=== PATIENT | male | born 1955 | race Hispanic/Latino ===

== ENCOUNTER 2019-05-04 11:55 | Inpatient (IN) | payer MEDICAID | END 2019-05-10 15:30 | disposition home or self-care (01) | LOC: EDH 11:55 → EDHIP 11:56 → 4CH 21:40 | PROC: 0FT44ZZ Resection of Gallbladder, Percutaneous Endoscopic Approach (ICD-10-PCS; principal; 2019-05-06 18:10) | DX: K80.63 Calculus of gallbladder and bile duct with acute cholecystitis with obstruction (principal); K82.A1 Gangrene of gallbladder in cholecystitis; B96.81 Helicobacter pylori [H. pylori] as the cause of diseases classified elsewhere; D64.9 Anemia, unspecified; K27.9 Peptic ulcer, site unspecified, unspecified as acute or chronic, without hemorrhage or perforation; E66.9 Obesity, unspecified; E78.5 Hyperlipidemia, unspecified; K29.70 Gastritis, unspecified, without bleeding; K55.20 Angiodysplasia of colon without hemorrhage; K82.8 Other specified diseases of gallbladder; K80.51 Calculus of bile duct without cholangitis or cholecystitis with obstruction ==

== ENCOUNTER 2019-05-17 12:09 | Emergency (ER) | payer MEDICAID ==
[2019-05-17 13:16] LABS: BASOPHILS % (AUTO) 0.5 % (0.0-5.0); EOSINOPHILS % (AUTO) 1.1 % (0.0-8.0); HEMATOCRIT 38.3 % (42-54); LYMPHOCYTES % (AUTO) 13.1 % (21.0-51.0); MEAN CORPUSCULAR HEMOGLOBIN 28.5 pg (27.0-33.0); MEAN CORPUSCULAR HGB CONC 32.9 g/dL (32.0-36.0); MEAN CORPUSCULAR VOLUME 86.6 fL (79-99); MONOCYTES % (AUTO) 7.7 % (3.0-13.0); NEUTROPHILS % (AUTO) 77.6 % (40.0-77.0); NUCLEATED RED BLOOD CELLS 0.1 % (0.0-0.19); PLATELET COUNT (AUTO) 360 K/uL (130-400); RED BLOOD CELL COUNT(AUTO) 4.42 MIL/uL (4.50-6.20); RED CELL DISTRIBUTION WIDTH 13.8 % (11.0-15.5); WHITE BLOOD COUNT (AUTO) 7.9 K/uL (4.8-10.8)
[2019-05-17 13:20] LABS: APPEARANCE,URINE Clear (CLEAR); BILIRUBIN,URINE Small (NEGATIVE); COLOR,URINE Dark Yellow (YELLOW); GLUCOSE, URINE (UA) Negative (NEGATIVE); KETONES,URINE Negative (NEGATIVE); LEUKOCYTE ESTERASE ,URINE Trace (NEGATIVE); NITRATE,URINE Negative (NEGATIVE); OCCULT BLOOD,URINE Negative (NEGATIVE); PROTEIN,URINE Negative (NEGATIVE)
[2019-05-17 13:24] LABS: CREATININE 1.1 mg/dL (0.5-1.5)
[2019-05-17 13:28] LABS: ALBUMIN 3.2 g/dL (3.5-5.0); BILIRUBIN,TOTAL 0.6 mg/dL (0.2-1.0); TOTAL PROTEIN, SERUM 8.2 g/dL (6.0-8.3)
[2019-05-17 13:51] LABS: BACTERIA,URINE Few /HPF (None Seen); RBC,URINE 0-1 /HPF (0-1); WBC,URINE 0-1 /HPF (0-1)
[2019-05-17 13:52] LABS: MUCUS,URINE Moderate LPF (None Seen); SQUAMOUS EPITHELIAL CELL,UR 0-2 /HPF (0-2)
[2019-05-17] MEDS ORDERED: IOHEXOL-350 75 ML VIAL IV ONE (14:13)
[2019-05-17] MEDS ORDERED: LIDOCAINE HCL 2% VISCOUS 15 ML UDCUP ONE (15:56)
[2019-05-17] MEDS ORDERED: MAG HYDROX/AL HYDROX/SIMETH ES 30 ML SUSP UDCUP ONE (15:56)
== END 2019-05-17 16:13 | disposition home or self-care (01) ==
LOC: EDH 12:09
DX: K29.00 Acute gastritis without bleeding (principal); Z90.49 Acquired absence of other specified parts of digestive tract; Z98.890 Other specified postprocedural states
CPT/HCPCS: 36415; 74177; 80053; 81001; 83690; 85025; 93005; 99285; Q9967

== ENCOUNTER 2020-11-07 15:18 | Emergency (ER) | payer MEDICAID ==
[2020-11-07 17:02] LABS: APPEARANCE,URINE Clear (CLEAR); BASOPHILS % (AUTO) 0.6 % (0.0-5.0); BILIRUBIN,URINE Negative (NEGATIVE); COLOR,URINE Yellow (YELLOW); EOSINOPHILS % (AUTO) 2.2 % (0.0-8.0); GLUCOSE, URINE (UA) Negative (NEGATIVE); HEMATOCRIT 41.9 % (42-54); KETONES,URINE Negative (NEGATIVE); LEUKOCYTE ESTERASE ,URINE Negative (NEGATIVE); LYMPHOCYTES % (AUTO) 23.2 % (21.0-51.0); MEAN CORPUSCULAR HEMOGLOBIN 28.3 pg (27.0-33.0); MEAN CORPUSCULAR HGB CONC 33.2 g/dL (32.0-36.0); MEAN CORPUSCULAR VOLUME 85.3 fL (79-99); MONOCYTES % (AUTO) 8.2 % (3.0-13.0); NEUTROPHILS % (AUTO) 65.6 % (40.0-77.0); NITRATE,URINE Negative (NEGATIVE); OCCULT BLOOD,URINE Negative (NEGATIVE); PH,URINE 5.5 (5.0-8.0); PLATELET COUNT (AUTO) 151 K/uL (130-400); PROTEIN,URINE Negative (NEGATIVE); RED BLOOD CELL COUNT(AUTO) 4.91 MIL/uL (4.50-6.20); RED CELL DISTRIBUTION WIDTH 12.2 % (11.0-15.5); UROBILINOGEN,URINE 0.2 mg/dL (0.2-1.0); WHITE BLOOD COUNT (AUTO) 5.4 K/uL (4.8-10.8)
[2020-11-07 17:11] LABS: CREATININE 1.1 mg/dL (0.5-1.5); POTASSIUM 3.7 mmol/L (3.5-5.1)
[2020-11-07 17:13] LABS: INR 0.98 (0.85-1.15); PROTHROMBIN TIME 10.5 SEC (9.6-11.6)
[2020-11-07 17:14] LABS: PARTIAL THROMBOPLASTIN TIME 25.8 SEC (26.3-35.5)
[2020-11-07 17:16] LABS: ALBUMIN 3.7 g/dL (3.5-5.0); BILIRUBIN,TOTAL 0.4 mg/dL (0.2-1.0)
== END 2020-11-07 18:38 | disposition home or self-care (01) ==
LOC: EDH 15:18
DX: G44.229 Chronic tension-type headache, not intractable (principal); F43.0 Acute stress reaction; R03.0 Elevated blood-pressure reading, without diagnosis of hypertension; E78.00 Pure hypercholesterolemia, unspecified; Z98.890 Other specified postprocedural states
CPT/HCPCS: 36415; 70450; 80053; 81003; 82550; 84484; 85025; 85610; 85730; 93005

== ENCOUNTER 2022-04-12 13:59 | Emergency (ER) | payer MEDICAID ==
[~2022-04-12] VITALS: Ht 172.7 cm; Wt 98.9 kg
[2022-04-12 14:28] LABS: BASOPHILS % (AUTO) 0.4 % (0.0-5.0); EOSINOPHILS % (AUTO) 1.5 % (0.0-8.0); HEMATOCRIT 46.9 % (42-54); LYMPHOCYTES % (AUTO) 22.2 % (21.0-51.0); MEAN CORPUSCULAR HEMOGLOBIN 28.8 pg (27.0-33.0); MEAN CORPUSCULAR HGB CONC 33.5 g/dL (32.0-36.0); MEAN CORPUSCULAR VOLUME 86.1 fL (79-99); MONOCYTES % (AUTO) 6.9 % (3.0-13.0); NEUTROPHILS % (AUTO) 68.6 % (40.0-77.0); PLATELET COUNT (AUTO) 147 K/uL (130-400); RED BLOOD CELL COUNT(AUTO) 5.45 MIL/uL (4.50-6.20); RED CELL DISTRIBUTION WIDTH 11.9 % (11.0-15.5); WHITE BLOOD COUNT (AUTO) 6.7 K/uL (4.8-10.8)
[2022-04-12 14:36] LABS: CREATININE 0.9 mg/dL (0.5-1.5); POTASSIUM 4.2 mmol/L (3.5-5.1)
[2022-04-12 14:40] LABS: ALBUMIN 4.1 g/dL (3.5-5.0)
[2022-04-12 15:37] LABS: APPEARANCE,URINE Clear (CLEAR); BILIRUBIN,URINE Negative (NEGATIVE); COLOR,URINE Yellow (YELLOW); GLUCOSE, URINE (UA) Negative (NEGATIVE); KETONES,URINE Negative (NEGATIVE); LEUKOCYTE ESTERASE ,URINE Negative (NEGATIVE); NITRATE,URINE Negative (NEGATIVE); OCCULT BLOOD,URINE Negative (NEGATIVE); PH,URINE 5.5 (5.0-8.0); PROTEIN,URINE Negative (NEGATIVE); UROBILINOGEN,URINE 0.2 mg/dL (0.2-1.0)
[2022-04-12] MEDS ORDERED: IOHEXOL-350 75 ML VIAL IV ONE (17:24)
[2022-04-12] MEDS ORDERED: FAMO20TA8 PO (19:05)
[2022-04-12 19:07] VITALS: BP 148/89
== END 2022-04-12 19:16 | disposition home or self-care (01) ==
LOC: EDH 13:59
DX: K21.9 Gastro-esophageal reflux disease without esophagitis (principal); K43.9 Ventral hernia without obstruction or gangrene; E78.00 Pure hypercholesterolemia, unspecified; Z90.49 Acquired absence of other specified parts of digestive tract
CPT/HCPCS: 99291; 74177; 84484; 80053; 83690; 85025; 81003; 36415; 93005; Q9967

== ENCOUNTER 2022-06-22 06:57 | Emergency (ER) | payer MEDICAID ==
[~2022-06-22] VITALS: Ht 172.7 cm; Wt 96.6 kg
[~2022-06-22 06:57] MED LIST: FAMO20TA8 PO
[2022-06-22] MEDS ORDERED: 0.9%NACL 1000ML 1,000 ML IV ONE (07:30)
[2022-06-22 07:33] LABS: BASOPHILS % (AUTO) 0.6 % (0.0-5.0); HEMATOCRIT 42.6 % (42-54); LYMPHOCYTES % (AUTO) 30.2 % (21.0-51.0); MEAN CORPUSCULAR HEMOGLOBIN 29.2 pg (27.0-33.0); MEAN CORPUSCULAR HGB CONC 34.7 g/dL (32.0-36.0); MEAN CORPUSCULAR VOLUME 84.2 fL (79-99); MONOCYTES % (AUTO) 8.3 % (3.0-13.0); NEUTROPHILS % (AUTO) 57.7 % (40.0-77.0); PLATELET COUNT (AUTO) 170 K/uL (130-400); RED BLOOD CELL COUNT(AUTO) 5.06 MIL/uL (4.50-6.20); RED CELL DISTRIBUTION WIDTH 12.1 % (11.0-15.5); WHITE BLOOD COUNT (AUTO) 4.7 K/uL (4.8-10.8)
[2022-06-22 07:46] LABS: ALBUMIN 3.8 g/dL (3.5-5.0); POTASSIUM 3.6 mmol/L (3.5-5.1)
[2022-06-22 07:59] LABS: APPEARANCE,URINE CLEAR (CLEAR); BILIRUBIN,URINE NEGATIVE (NEGATIVE); COLOR,URINE YELLOW (YELLOW); GLUCOSE, URINE (UA) NEGATIVE (NEGATIVE); KETONES,URINE NEGATIVE (NEGATIVE); LEUKOCYTE ESTERASE ,URINE NEGATIVE (NEGATIVE); NITRATE,URINE NEGATIVE (NEGATIVE); OCCULT BLOOD,URINE NEGATIVE (NEGATIVE); PROTEIN,URINE NEGATIVE (NEGATIVE); UROBILINOGEN,URINE 0.2 mg/dL (0.2-1.0)
[2022-06-22 08:03] LABS: RBC,URINE None Seen /HPF (0-1); WBC,URINE None Seen /HPF (0-1)
[2022-06-22 08:10] LABS: BACTERIA,URINE Rare /HPF (None Seen); SQUAMOUS EPITHELIAL CELL,UR 0-2 /HPF (0-2)
[2022-06-22 09:45] VITALS: BP 141/72
== END 2022-06-22 09:44 | disposition home or self-care (01) ==
LOC: EDH 06:57
DX: G44.209 Tension-type headache, unspecified, not intractable (principal); E86.0 Dehydration; Z90.49 Acquired absence of other specified parts of digestive tract
CPT/HCPCS: 99285; 96360; 70450; 96361; 82550; 84484; 80053; 85025; 81001; 36415; 93005; J7030

== ENCOUNTER → 2023-04-11 | Outpatient (CLI) | payer OTHER ==
[~2023-04-11] MED LIST changes: +IOHEXOL 350 MG/ML 100ML INFUS..BTL IV ONE
== END | disposition home or self-care (01) ==
LOC: RAH 09:33
PROVIDERS: ATTEND Family Medicine
DX: N40.0 Benign prostatic hyperplasia without lower urinary tract symptoms (principal); K43.9 Ventral hernia without obstruction or gangrene; R10.2 Pelvic and perineal pain; N41.9 Inflammatory disease of prostate, unspecified
CPT/HCPCS: 74178; Q9967

== ENCOUNTER 2023-11-13 08:37 | Emergency (ER) | payer OTHER, MEDICARE ==
[~2023-11-13] VITALS: Ht 175.3 cm; Wt 88.5 kg
[~2023-11-13 08:37] MED LIST changes: +ATOR10 PO; +CEPH500B PO; +CETI10CA5 PO; +DICY-20 PO; -IOHEXOL 350 MG/ML 100ML INFUS..BTL IV ONE; +LISI10TA24 PO; +MACR100 PO; +PHEN-847 PO; +PSYL3.4P5 PO; +TAMS-1 PO
[2023-11-13 08:56] LABS: BASOPHILS # (AUTO) 0.04 K/uL (0.00-0.20); BASOPHILS % (AUTO) 0.3 % (0.0-5.0); EOSINOPHILS # (AUTO) 0.02 K/uL (0.00-0.70); EOSINOPHILS % (AUTO) 0.1 % (0.0-8.0); HEMATOCRIT 45.7 % (42-54); IMMATURE GRANULOCYTE ABSOLUTE 0.08 K/uL (0-1); LYMPHOCYTES # (AUTO) 0.6 K/uL (1.0-4.8); LYMPHOCYTES % (AUTO) 4.1 % (21.0-51.0); MEAN CORPUSCULAR HEMOGLOBIN 29.8 pg (27.0-33.0); MEAN CORPUSCULAR HGB CONC 33.7 g/dL (32.0-36.0); MEAN CORPUSCULAR VOLUME 88.4 fL (79-99); MONOCYTES # (AUTO) 0.8 K/uL (0.1-1.0); MONOCYTES % (AUTO) 5.3 % (3.0-13.0); NEUTROPHILS # (AUTO) 13.6 K/uL (1.8-7.7); NEUTROPHILS % (AUTO) 89.7 % (40.0-77.0); PLATELET COUNT (AUTO) 172 K/uL (130-400); RED BLOOD CELL COUNT(AUTO) 5.17 MIL/uL (4.50-6.20); RED CELL DISTRIBUTION WIDTH 11.9 % (11.0-15.5); WHITE BLOOD COUNT (AUTO) 15.1 K/uL (4.8-10.8)
[2023-11-13 09:05] LABS: APPEARANCE,URINE CLEAR (CLEAR); BILIRUBIN,URINE NEGATIVE (NEGATIVE); COLOR,URINE YELLOW (YELLOW); GLUCOSE, URINE (UA) NEGATIVE (NEGATIVE); KETONES,URINE NEGATIVE (NEGATIVE); LEUKOCYTE ESTERASE ,URINE NEGATIVE Leu/uL (NEGATIVE); NITRATE,URINE NEGATIVE (NEGATIVE); OCCULT BLOOD,URINE NEGATIVE (NEGATIVE); PH,URINE 5.5 (5.0-8.0); PROTEIN,URINE NEGATIVE (NEGATIVE); UROBILINOGEN,URINE 0.2 mg/dL (0.2-1.0)
[2023-11-13 09:07] LABS: ADD UA MICROSCOPIC NO
[2023-11-13 09:09] LABS: ALBUMIN 4.2 g/dL (3.5-5.0); BILIRUBIN,TOTAL 1.3 mg/dL (0.2-1.0)
[2023-11-13] MEDS ORDERED: AZITHROMYCIN 250 MG TABLET PO ONE (10:00)
[2023-11-13] MEDS ORDERED: CEFTRIAXONE 1G VIAL IM ONE (10:00)
[2023-11-13] MEDS ORDERED: CEFU500T67 PO (10:29)
[2023-11-13] MEDS ORDERED: LIDOCAINE HCL 1% 20 ML VIAL ONE (10:36)
[2023-11-13 11:25] VITALS: BP 118/82; PULSE 102; RESP 18; O2SAT 97
== END 2023-11-13 11:27 | disposition home or self-care (01) ==
LOC: EDH 08:37
DX: R30.0 Dysuria (principal); E78.00 Pure hypercholesterolemia, unspecified; I10 Essential (primary) hypertension; Z79.899 Other long term (current) drug therapy; Z90.49 Acquired absence of other specified parts of digestive tract
CPT/HCPCS: 99283; 80053; 85025; 87797; 87486; 81003; 36415; 96372; J0696

== ENCOUNTER 2023-11-28 08:53 | Emergency (ER) | payer OTHER, MEDICARE ==
[~2023-11-28] VITALS: Ht 172.7 cm; Wt 88.5 kg
[~2023-11-28 08:53] MED LIST changes: +CEFU500T67 PO; -DICY-20 PO; +DICY10CA2 PO
[2023-11-28 08:55] VITALS: BP 131/80; PULSE 85; RESP 16
[2023-11-28 10:30] LABS: INFLUENZA TYPE A Negative For Type A (NEGATIVE); INFLUENZA TYPE B Negative For Type B (NEGATIVE)
[2023-11-28 10:33] LABS: COVID19 (SARS ANTIGEN RAPID) POSITIVE FOR SARS AG (NEGATIVE)
[2023-11-28] MEDS ORDERED: BENZ-39 PO (10:57)
[2023-11-28] MEDS ORDERED: NIRM1TAB7 PO (10:57)
== END 2023-11-28 11:07 | disposition home or self-care (01) ==
LOC: EDH 08:53
DX: U07.1 COVID-19 (principal); I10 Essential (primary) hypertension; E78.00 Pure hypercholesterolemia, unspecified; Z79.899 Other long term (current) drug therapy; Z90.49 Acquired absence of other specified parts of digestive tract; Z98.890 Other specified postprocedural states
CPT/HCPCS: 87426; 87804

== ENCOUNTER 2024-03-06 07:28 | Emergency (ER) | payer OTHER, MEDICARE ==
[~2024-03-06] VITALS: Ht 172.7 cm; Wt 88.5 kg
[~2024-03-06 07:28] MED LIST changes: +BENZ-39 PO; +NIRM1TAB7 PO
[2024-03-06 08:20] LABS: BASOPHILS # (AUTO) 0.03 K/uL (0.00-0.20); BASOPHILS % (AUTO) 0.4 % (0.0-5.0); EOSINOPHILS # (AUTO) 0.08 K/uL (0.00-0.70); HEMATOCRIT 43.9 % (42-54); IMMATURE GRANULOCYTE ABSOLUTE 0.03 K/uL (0-1); LYMPHOCYTES # (AUTO) 0.6 K/uL (1.0-4.8); LYMPHOCYTES % (AUTO) 7.6 % (21.0-51.0); MEAN CORPUSCULAR HEMOGLOBIN 29.4 pg (27.0-33.0); MEAN CORPUSCULAR VOLUME 88.9 fL (79-99); MONOCYTES # (AUTO) 0.9 K/uL (0.1-1.0); MONOCYTES % (AUTO) 10.4 % (3.0-13.0); NEUTROPHILS # (AUTO) 6.5 K/uL (1.8-7.7); NEUTROPHILS % (AUTO) 80.2 % (40.0-77.0); PLATELET COUNT (AUTO) 128 K/uL (130-400); RED BLOOD CELL COUNT(AUTO) 4.94 MIL/uL (4.50-6.20); RED CELL DISTRIBUTION WIDTH 12.6 % (11.0-15.5); WHITE BLOOD COUNT (AUTO) 8.1 K/uL (4.8-10.8)
[2024-03-06 08:22] LABS: APPEARANCE,URINE CLEAR (CLEAR); BILIRUBIN,URINE SMALL mg/dL (NEGATIVE); COLOR,URINE YELLOW (YELLOW); GLUCOSE, URINE (UA) NEGATIVE (NEGATIVE); KETONES,URINE NEGATIVE (NEGATIVE); LEUKOCYTE ESTERASE ,URINE NEGATIVE Leu/uL (NEGATIVE); NITRATE,URINE NEGATIVE (NEGATIVE); OCCULT BLOOD,URINE NEGATIVE (NEGATIVE); PROTEIN,URINE NEGATIVE (NEGATIVE); UROBILINOGEN,URINE 0.2 mg/dL (0.2-1.0)
[2024-03-06 08:26] LABS: HEMOGLOBIN A1C 5.4 % (4.0-6.0)
[2024-03-06 08:28] LABS: ADD UA MICROSCOPIC YES
[2024-03-06 08:30] LABS: BACTERIA,URINE None Seen /HPF (None Seen); RBC,URINE 0-1 /HPF (0-1); WBC,URINE 0-1 /HPF (0-1)
[2024-03-06 08:37] LABS: ALBUMIN 3.4 g/dL (3.5-5.0); BILIRUBIN,TOTAL 1.2 mg/dL (0.2-1.0); CREATININE 1.1 mg/dL (0.5-1.3); POTASSIUM 3.8 mmol/L (3.5-5.1); TOTAL PROTEIN, SERUM 7.4 g/dL (6.0-8.3)
[2024-03-06 09:37] VITALS: BP 131/81; PULSE 96; RESP 17; O2SAT 99
[2024-03-06] MEDS ORDERED: MELO-108 PO (09:53)
== END 2024-03-06 10:20 | disposition home or self-care (01) ==
LOC: EDH 07:28
DX: K40.20 Bilateral inguinal hernia, without obstruction or gangrene, not specified as recurrent (principal); M79.10 Myalgia, unspecified site; I10 Essential (primary) hypertension; E78.00 Pure hypercholesterolemia, unspecified; K42.9 Umbilical hernia without obstruction or gangrene; N40.0 Benign prostatic hyperplasia without lower urinary tract symptoms; Z79.899 Other long term (current) drug therapy; Z90.49 Acquired absence of other specified parts of digestive tract; Z98.890 Other specified postprocedural states
CPT/HCPCS: 36415; 74176; 80053; 81001; 83036; 83605; 85025; 87040

== ENCOUNTER 2024-05-17 10:24 | Emergency (ER) | payer OTHER, MEDICARE ==
[~2024-05-17] VITALS: Ht 172.7 cm; Wt 88.5 kg
[~2024-05-17 10:24] MED LIST changes: +MELO-108 PO
[2024-05-17 11:13] LABS: APPEARANCE,URINE CLEAR (CLEAR); BILIRUBIN,URINE NEGATIVE (NEGATIVE); COLOR,URINE LIGHT-YELLOW (YELLOW); GLUCOSE, URINE (UA) NEGATIVE (NEGATIVE); KETONES,URINE NEGATIVE (NEGATIVE); LEUKOCYTE ESTERASE ,URINE NEGATIVE Leu/uL (NEGATIVE); NITRATE,URINE NEGATIVE (NEGATIVE); OCCULT BLOOD,URINE NEGATIVE (NEGATIVE); PROTEIN,URINE NEGATIVE (NEGATIVE); UROBILINOGEN,URINE 0.2 mg/dL (0.2-1.0)
[2024-05-17 11:17] LABS: ADD UA MICROSCOPIC NO
[2024-05-17 11:18] LABS: BASOPHILS # (AUTO) 0.03 K/uL (0.00-0.20); BASOPHILS % (AUTO) 0.3 % (0.0-5.0); EOSINOPHILS # (AUTO) 0.06 K/uL (0.00-0.70); EOSINOPHILS % (AUTO) 0.6 % (0.0-8.0); HEMATOCRIT 41.2 % (42-54); IMMATURE GRANULOCYTE ABSOLUTE 0.02 K/uL (0-1); LYMPHOCYTES # (AUTO) 0.9 K/uL (1.0-4.8); LYMPHOCYTES % (AUTO) 9.4 % (21.0-51.0); MEAN CORPUSCULAR HEMOGLOBIN 29.4 pg (27.0-33.0); MEAN CORPUSCULAR HGB CONC 33.5 g/dL (32.0-36.0); MEAN CORPUSCULAR VOLUME 87.8 fL (79-99); MONOCYTES # (AUTO) 0.7 K/uL (0.1-1.0); NEUTROPHILS # (AUTO) 8.3 K/uL (1.8-7.7); NEUTROPHILS % (AUTO) 82.5 % (40.0-77.0); PLATELET COUNT (AUTO) 143 K/uL (130-400); POTASSIUM 4.2 mmol/L (3.5-5.1); RED BLOOD CELL COUNT(AUTO) 4.69 MIL/uL (4.50-6.20); RED CELL DISTRIBUTION WIDTH 12.4 % (11.0-15.5)
[2024-05-17 11:23] LABS: ALBUMIN 3.7 g/dL (3.5-5.0); BILIRUBIN,TOTAL 0.9 mg/dL (0.2-1.0); TOTAL PROTEIN, SERUM 7.4 g/dL (6.0-8.3)
[2024-05-17] MEDS: 0.9%NACL 1000ML 1,000 ML IV ONE (12:06)
[2024-05-17] MEDS: KETOROLAC 30MG VIAL (30MG/ML) IVP ONE (12:06)
[2024-05-17] MEDS ORDERED: IOHEXOL-350 75 ML VIAL IV ONE (12:30)
[2024-05-17] MEDS ORDERED: IBUP-2077 PO (13:29)
[2024-05-17 13:31] VITALS: BP 132/73; PULSE 78; RESP 18; O2SAT 98
== END 2024-05-17 13:39 | disposition home or self-care (01) ==
LOC: EDH 11:08
DX: N40.0 Benign prostatic hyperplasia without lower urinary tract symptoms (principal); K57.30 Diverticulosis of large intestine without perforation or abscess without bleeding; K43.9 Ventral hernia without obstruction or gangrene; E78.00 Pure hypercholesterolemia, unspecified; I10 Essential (primary) hypertension; Z90.49 Acquired absence of other specified parts of digestive tract; Z98.890 Other specified postprocedural states; Z79.899 Other long term (current) drug therapy; Z79.2 Long term (current) use of antibiotics
CPT/HCPCS: 99285; 74177; 96374; 96361; 80053; 83690; 85025; 81003; 36415; J7030; J1885; Q9967

== ENCOUNTER 2024-10-24 08:37 | Emergency (ER) | payer OTHER, MEDICARE ==
[~2024-10-24] VITALS: Ht 175.3 cm; Wt 88.5 kg
[~2024-10-24 08:37] MED LIST changes: +ASPI-1443 PO; -ATOR10 PO; +ATOR10TA69 PO; +BACL5TAB PO; -BENZ-39 PO; -CEFU500T67 PO; -CEPH500B PO; -DICY10CA2 PO; -FAMO20TA8 PO; -MACR100 PO; -NIRM1TAB7 PO; +PANT40TA54 PO; -PHEN-847 PO; -PSYL3.4P5 PO; +TRAM-543 PO
--- NOTE | 2024-10-24 08:47 | ERN ---
General Chief Complaint: Catheter Change Stated Complaint: VALENTIN REMOVAL Time Seen by MD: 08:38 Source: patient History of Present Illness Initial Comments Patient is a 68-year-old male coming in to be evaluated for Valentin catheter removal. States that had that Valentin catheter for two weeks he had a And States he would like it removed. Allergies: Coded Allergies: No Known Allergies (Verified Allergy, Unknown, 05/04/19) Home Meds Reported Medications Tramadol HCl/Acetaminophen (Tramadol-Acetaminophn 37.5-325) 37.5 Mg-325 Mg Tablet, 1 TAB PO TIDP PRN for pain for 30 Days, #90 TAB 0 Refills 10/11/24 Baclofen (Baclofen) 5 Mg Tablet, 5 MG PO TID, TAB 10/11/24 Meloxicam (Meloxicam) 15 Mg Tablet, 1 TAB PO DAILY for 30 Days, #30 TAB 0 Refills 10/11/24 Pantoprazole Sodium (Pantoprazole Sodium) 40 Mg Tablet.dr, 1 TAB PO DAILY for 30 Days, #30 TAB 0 Refills 10/11/24 Aspirin (Aspirin EC) 81 Mg Tablet.dr, 1 TAB PO DAILY for 30 Days, #30 TAB 0 Refills 10/11/24 Atorvastatin Calcium (Atorvastatin Calcium) 10 Mg Tablet, 1 TAB PO DAILY for 30 Days, #30 TAB 0 Refills 10/11/24 Tamsulosin HCl (Flomax) 0.4 Mg Cap.er.24h, 1 CAP PO DAILY for 30 Days, #30 CAP 0 Refills 10/11/24 Cetirizine HCl (Zyrtec) 10 Mg Capsule, 10 MG PO DAILY, CAP 04/19/23 Lisinopril (Lisinopril) 10 Mg Tablet, 10 MG PO DAILY, TAB 04/19/23 Past Medical History Past Medical History: High Cholesterol, Hypertension, Prostatitis Medical History Other: PROSTATE ENLARGEMENT Past Surgical History: Cholecystectomy, Other Surgical History Other: RIGHT KNEE Social History Social History: Negative, Lives with family ROS Dictation CONSTITUTIONAL: No chills, no fever, no weakness, no diaphoresis, no malaise. HEAD/FACE: No signs of trauma. EENT: No eye pain, no blurred vision, no tearing, no double vision, no ear pain, no ear discharge, no nose pain, no nasal congestion, no throat pain, no throat swelling, no mouth pain. RESPIRATORY: No cough, no orthopnea, no SOB, no stridor, no wheezing. CARDIOVASCULAR: No chest pain, no edema, no palpitations, no syncope. GASTROINTESTINAL/ABDOMINAL: No abdominal pain, no constipation, no diarrhea, no nausea, no vomiting. GENITOURINARY: No abnormal discharge, no dysuria, no frequent urination, no hematuria. No complaints of pain in the genitals. MUSCULOSKELETAL: No back pain, no gout, no joint pain, no joint swelling, no muscle pain, no muscle stiffness, no neck pain. INTEGUMENTARY: No change in color, no change in hair/nails, no dryness, no lesion, no lumps, no rash. NEUROLOGICAL/PSYCH: No anxiety, not depressed, no emotional problem, no headache, no numbness, no pre-existing deficit, no history of seizures, no tremors, no weakness. HEMATOLOGIC/LYMPHATIC: Not anemic, no history of blood clots, no apparent bleeding, no bruising, glands not swollen. All Systems Negative, Except as Noted. Physical Exam Physical Exam Dictation VITAL SIGNS: Reviewed. GENERAL APPEARANCE: Alert, oriented x3, no acute distress, obese. HEAD AND FACE: Non-traumatic. EYES: PERRL, pink conjunctivas, eyelid no trauma, anterior chamber clear. EARS: Pinnas intact and no signs of trauma or erythema. Ear canals clear and no discharge. TMs no erythema. NOSE: No discharge, no bleeding. OROPHARYNX: Mouth normal, teeth no caries, tongue pink. Pharynx clear, no erythema. Tonsils no exudates, no abscesses noted. Mucous membrane moist. NECK: Supple, non-tender, no thyromegaly, no masses, no JVD, no bruits. BREAST: Deferred. CHEST: No tenderness, no crepitus, no paradoxical movement, no retractions. LUNGS: Clear, well-ventilated, symmetric, no rales, no wheezing, no rhonchi, no stridor, good breath sounds bilaterally. HEART: Regular rate, regular rhythm, no murmur, no gallops. VASCULAR: No peripheral edema. ABDOMEN: Soft, positive bowel sounds, nondistended, no guarding, nontender, no rebound, no masses no hepatomegaly, no splenomegaly, no Nicolas's sign, no hernias. RECTAL: Deferred. GENITAL: Valentin catheter and leg bag in place NEUROLOGICAL: Normal speech, gross motor function intact, gross sensory f unction intact. MUSCULOSKELETAL: Neck nontender, full range of motion, back nontender, full range of motion. EXTREMITIES: Nontender, full range of motion. SKIN: Color pink, dry, no turgor, no rash, no lacerations, no abrasions, no contusions. LYMPHATICS: Deferred. MDM MDM: Differential diagnosis: Valentin catheter removal, Valentin catheter in place, 68-year-old gentleman coming in for Valentin catheter removal. Patient states that he has had it for two weeks and causing some discomfort and wants it out. I explained possibility retention after Valentin removal but states he still wants it out. So Valentin catheter was removed. ED Course Vital Signs Date Time Temp Pulse Resp B/P (MAP) Pulse Ox O2 Delivery O2 Flow Rate FiO2 10/24/24 08:38 98.1 90 20 146/81 99 Room Air 0 DX & DISP Disposition: Discharge Departure Impression: Primary Impression: Encounter for Valentin catheter removal Condition: Stable Additional Instructions: FOLLOW-UP WITH PRIMARY CARE PROVIDER IN 1 TO 2 DAYS. TAKE MEDICATIONS DIRECTED HERE IN THE EMERGENCY ROOM. OKAY TO CONTINUE HOME MEDICATIONS UNLESS OTHERWISE DISCUSSED DURING YOUR VISIT IN THE EMERGENCY ROOM TODAY. RETURN TO YOUR NEAREST EMERGENCY ROOM IF SYMPTOMS WORSEN OR IF THERE IS NO IMPROVEMENT. CALL 911 IF YOU NEED IMMEDIATE ASSISTANCE. TAKE TYLENOL [id number] NEEDED AND IF NO CONTRAINDICATIONS ARE PRESENT. INCREASE ORAL HYDRATION. A WOUND CULTURE OR URINE CULTURE WAS ORDERED HERE IN THE EMERGENCY ROOM DEPARTMENT PLEASE FOLLOW-UP WITH PRIMARY CARE PROVIDER AND ADVISE THEM TO GET REPEAT PORTS FROM OUR FACILITY. IF YOU HAD ANY APPLE WRAP/SPLINTS THAT WERE APPLIED HERE, PLEASE DO NOT REMOVE THEM UNTIL YOU SEE YOUR PRIMARY CARE OR SPECIALTY. REFERRALS: Referrals: MATT JARAMILLO MD (PCP) CIRILO DELGADO MD Time of Disposition: 08:47 TANNA GREEN MD Oct 24, 2024 08:47
--- NOTE | 2024-10-24 09:37 | NUR ---
VALENTIN PATIENT ARRIVED WITH AN 18FR VALENTIN THAT HE HAD FOR ABOUT 2 WEEKS. HE REQESTED THE REMOVAL OF IT.WITH DR GREEN'S PERMISSION VALENTIN WAS REMOVED.PATIENT TOLERATED IT WELL.
[2024-10-24 10:29] VITALS: BP 140/79; PULSE 80; RESP 16; TEMP 98.4; O2SAT 98
--- NOTE | 2024-10-24 10:32 | NUR ---
OUTPUT PATIENT URINATED 3 TIMES FOLLOWING VALENTIN REMOVAL, 150 ML CLEAR LIGHT YELLOW URINE.
== END 2024-10-24 10:33 | disposition home or self-care (01) ==
LOC: EDH 08:37
DX: Z46.6 Encounter for fitting and adjustment of urinary device (principal); E78.00 Pure hypercholesterolemia, unspecified; I10 Essential (primary) hypertension; Z79.1 Long term (current) use of non-steroidal anti-inflammatories (NSAID); Z79.82 Long term (current) use of aspirin; Z79.899 Other long term (current) drug therapy; Z90.49 Acquired absence of other specified parts of digestive tract
CPT/HCPCS: 99282

== ENCOUNTER 2024-11-15 08:01 | Emergency (ER) | payer OTHER, MEDICARE ==
[~2024-11-15] VITALS: Ht 175.3 cm; Wt 86.2 kg
[2024-11-15 08:50] LABS: BASOPHILS # (AUTO) 0.04 K/uL (0.00-0.20); BASOPHILS % (AUTO) 0.8 % (0.0-5.0); EOSINOPHILS # (AUTO) 0.12 K/uL (0.00-0.70); EOSINOPHILS % (AUTO) 2.5 % (0.0-8.0); HEMATOCRIT 41.6 % (42-54); IMMATURE GRANULOCYTE ABSOLUTE 0.02 K/uL (0-1); LYMPHOCYTES # (AUTO) 1.1 K/uL (1.0-4.8); LYMPHOCYTES % (AUTO) 21.5 % (21.0-51.0); MEAN CORPUSCULAR HEMOGLOBIN 29.8 pg (27.0-33.0); MEAN CORPUSCULAR HGB CONC 33.4 g/dL (32.0-36.0); MEAN CORPUSCULAR VOLUME 89.1 fL (79-99); MONOCYTES # (AUTO) 0.4 K/uL (0.1-1.0); MONOCYTES % (AUTO) 7.2 % (3.0-13.0); NEUTROPHILS # (AUTO) 3.3 K/uL (1.8-7.7); NEUTROPHILS % (AUTO) 67.6 % (40.0-77.0); PLATELET COUNT (AUTO) 122 K/uL (130-400); RED BLOOD CELL COUNT(AUTO) 4.67 MIL/uL (4.50-6.20); RED CELL DISTRIBUTION WIDTH 12.5 % (11.0-15.5); WHITE BLOOD COUNT (AUTO) 4.9 K/uL (4.8-10.8)
--- NOTE | 2024-11-15 08:58 | ERN ---
General Chief Complaint: Chest Pain Stated Complaint: CP Time Seen by MD: 08:20 History of Present Illness Initial Comments Mr. Andrés perez is a 68-year-old male past medical history of hypertension came to ER with complaints of palpitations, nausea and chest congestion since yesterday. Patient says he has been feeling chest congestion and gag for the past couple of days but last night he said he felt his heart pounding, radiating to jaw or left hand and this morning he woke up with a bad headache and took lisinopril 10 mg, his blood pressure was 197/97, took two Tylenol, he said he felt weak and dizzy while walking this morning. Denies history of thyroid disease or cardiac disease. Denies abdominal pain or vomitings Allergies: Coded Allergies: No Known Allergies (Verified Allergy, Unknown, 05/04/19) Home Meds Reported Medications Tramadol HCl/Acetaminophen (Tramadol-Acetaminophn 37.5-325) 37.5 Mg-325 Mg Tablet, 1 TAB PO TIDP PRN for pain for 30 Days, #90 TAB 0 Refills 10/11/24 Baclofen (Baclofen) 5 Mg Tablet, 5 MG PO TID, TAB 10/11/24 Meloxicam (Meloxicam) 15 Mg Tablet, 1 TAB PO DAILY for 30 Days, #30 TAB 0 Refills 10/11/24 Pantoprazole Sodium (Pantoprazole Sodium) 40 Mg Tablet.dr, 1 TAB PO DAILY for 30 Days, #30 TAB 0 Refills 10/11/24 Aspirin (Aspirin EC) 81 Mg Tablet.dr, 1 TAB PO DAILY for 30 Days, #30 TAB 0 Refills 10/11/24 Atorvastatin Calcium (Atorvastatin Calcium) 10 Mg Tablet, 1 TAB PO DAILY for 30 Days, #30 TAB 0 Refills 10/11/24 Tamsulosin HCl (Flomax) 0.4 Mg Cap.er.24h, 1 CAP PO DAILY for 30 Days, #30 CAP 0 Refills 10/11/24 Cetirizine HCl (Zyrtec) 10 Mg Capsule, 10 MG PO DAILY, CAP 04/19/23 Lisinopril (Lisinopril) 10 Mg Tablet, 10 MG PO DAILY, TAB 04/19/23 Past Medical History Past Medical History: High Cholesterol, Hypertension Medical History Other: PROSTATE ENLARGEMENT Past Surgical History: Cholecystectomy Surgical History Other: RIGHT KNEE Social History Social History: Negative, Lives with family Results Laboratory and Microbiology Lab and Micro Result Laboratory Tests Test 11/15/24 08:13 11/15/24 08:16 11/15/24 10:50 Urine Color LIGHT-YELLOW (YELLOW) Urine Appearance CLEAR (CLEAR) Urine pH 5.0 (5.0-8.0) Urine Specific [place] 1.013 (1.001-1.031) Urine Protein NEGATIVE mg/dL (NEGATIVE) Urine Glucose (UA) NEGATIVE mg/dL (NEGATIVE) Urine Ketones NEGATIVE mg/dL (NEGATIVE) Urine Occult Blood NEGATIVE (NEGATIVE) Urine Nitrate NEGATIVE (NEGATIVE) Urine Bilirubin NEGATIVE mg/dL (NEGATIVE) Urine Urobilinogen 0.2 mg/dL (0.2-1.0) Urine Leukocyte Esterase NEGATIVE Kingsley/uL White Blood Count 4.9 K/uL (4.8-10.8) Red Blood Count 4.67 MIL/uL (4.50-6.20) Hemoglobin 13.9 g/dL (14.0-18.0) L Hematocrit 41.6 % (42-54) L Mean Corpuscular Volume 89.1 fL (79-99) Mean Corpuscular Hemoglobin 29.8 pg (27.0-33.0) Mean Corpuscular Hemoglobin Concent 33.4 g/dL (32.0-36.0) Red Cell Distribution Width 12.5 % (11.0-15.5) Platelet Count 122 K/uL (130-400) L Mean Platelet Volume 11.3 fL (7.5-10.5) H Immature Granulocyte % (Auto) 0.4 % (0-1) Neutrophils (%) (Auto) 67.6 % (40.0-77.0) Lymphocytes (%) (Auto) 21.5 % (21.0-51.0) Monocytes (%) (Auto) 7.2 % (3.0-13.0) Eosinophils (%) (Auto) 2.5 % (0.0-8.0) Basophils (%) (Auto) 0.8 % (0.0-5.0) Neutrophils # (Auto) 3.3 K/uL (1.8-7.7) Lymphocytes # (Auto) 1.1 K/uL (1.0-4.8) Monocytes # (Auto) 0.4 K/uL (0.1-1.0) Eosinophils # (Auto) 0.12 K/uL (0.00-0.70) Basophils # (Auto) 0.04 K/uL (0.00-0.20) Absolute Immature Granulocyte (auto 0.02 K/uL (0-1) Nucleated Red Blood Cells 0.0 % (0.0-0.19) Prothrombin Time 10.1 SEC (9.6-11.6) Prothromb Time International Ratio <= 0.93 (0.85-1.15) Activated Partial Thromboplast Time 25.6 SEC (26.3-35.5) L Sodium Level 137 mmol/L (136-145) Potassium Level 3.8 mmol/L (3.5-5.1) Chloride Level 107 mmol/L (101-111) Carbon Dioxide Level 28 mmol/L (21-32) Blood Urea Nitrogen 23 mg/dL (7-18) H Creatinine 0.9 mg/dL (0.5-1.3) Glomerular Filtration Rate Calc 94 mL/min (>90) Random Glucose 105 mg/dL (70-105) Total Calcium 9.1 mg/dL (8.5-10.1) Troponin I High Sensitivity 4 ng/L (4-75) 5 ng/L (4-75) B-Type Natriuretic Peptide 28 pg/mL (0-100) EKG/XRAY/US/CT/MRI EKG Comment PATIENT: ARNALDO LIMON MR#: [id number] : 1955 SEX: M AGE: 68 LOCATION: [facility] ROOM/BED: ORDER [id number] REPORT#: [id number] REASON: ORDERING PHYSICIAN: STEFANIE BONNER MD PROCEDURE: EKG - 12 LEAD EKG TRACING- TECHNICAL 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 [id number] MDM The differential diagnosis entertained at this time includes: ACS, GERD, Pneumonia A full comprehensive workup will be performed to identify the underlying problem. The patient will be monitored closely throughout the emergency department stay. The disposition will depend on the workup results and frequent re-evaluations MDM: Rationale: Tests considered and ordered secondary to shared decision making include: CBC, CMP, Urinalysis,, ECG and radiology Previous outside records reviewed: Old ER visits. Risk of complication and/or morbidity or mortality of patient management: None Medications-Per medication reconciliation Need for hospitalization: Patient does meet criteria for hospitalization. Need for emergency major/minor surgery: No There are no social concerns with this patient. Prescription drug management Prescriptions will include symptomatic care Patient's prior external medical records from other ER visits were reviewed by me as indicated. Prior testing and results from previous visits were reviewed. Prior tests were taken into account with medical decision making and resource utilization, independent historian/historians were used to obtain complete medical history. I independently interpreted the test that were performed, results were reviewed by me and considered findings on radiology if ordered. Medical management and examination interpretation discussions were had by me with other qualified healthcare professionals as indicated for the patient's care. Cardiac workup was negative, he is hemodynamically stable and feels better, patient will be discharged home to follow up with PCP in 1-2 days ED Course Orders Procedure Category Date Status Time 12 Lead Ekg Tracing- EKG 11/15/24 Complete Technical 08:22 Cbc With Differential LAB 11/15/24 Complete 08:22 Basic Metabolic Panel LAB 11/15/24 Complete 08:22 Urinalysis Profile LAB 11/15/24 Complete 08:22 Troponin I High LAB 11/15/24 Complete Sensitivity 08:22 B-Type Natriuretic LAB 11/15/24 Complete Peptide 08:22 Pt And Ptt LAB 11/15/24 Complete 08:22 Chest 1vw RAD 11/15/24 Resulted 08:22 Ketorolac PHA 11/15/24 Complete Tromethamine 15mg/Ml 10:00 Orthostatic Vital CPOE 11/15/24 Transmitted Signs 09:59 Troponin I High LAB 11/15/24 Complete Sensitivity 10:38 Current Medications Medications (Trade) Dose Ordered Sig/Octavia Route PRN Reason Start Time Stop Time Status Last Admin Dose Admin Ketorolac Tromethamine (toRADol) 15 mg ONCE ONCE IM 11/15/24 10:00 11/15/24 10:01 DC 11/15/24 10:21 Vital Signs Date Time Temp Pulse Resp B/P (MAP) Pulse Ox O2 Delivery O2 Flow Rate FiO2 11/15/24 11:26 97.5 67 16 146/90 98 Room Air* 0 21 11/15/24 08:24 97.5 72 16 143/93 96 Room Air* 0 21 11/15/24 08:04 97.5 79 18 160/89 97 Room Air* 0 21 11/15/24 08:02 97.5 79 18 160/89 97 DX & DISP Disposition: Discharge Departure Impression: Primary Impression: Palpitations with regular cardiac rhythm Additional Impression: Hypertension Critical Time: 30 minutes Condition: Stable Additional Instructions: PATIENT AND THE CAREGIVER HAVE BEEN INFORMED OF ALL THE DIAGNOSTIC TESTS AND THE IMAGING CONDUCTED DURING THE TODAY'S VISIT TO THE EMERGENCY ROOM AND HAS VERBALIZED UNDERSTANDING OF THE RESULTS I HAVE PERSONALLY REVIEWED AND INTERPRETED ALL DIAGNOSTIC EXAMS PERFORMED HERE IN THE ER TODAY WELL THE VITAL SIGNS DOCUMENTED BY THE NURSING STAFF. THE PATIENT IS NOW BEING DISCHARGED TO HOME AND SHOULD FOLLOW UP WITH THE PRIMARY CARE PHYSICIAN OR THE SPECIALIST DIRECTED BY THE ER STAFF. FOLLOW-UP WITH PRIMARY CARE PROVIDER IN 1 TO 2 DAYS. TAKE MEDICATIONS DIRECTED HERE IN THE EMERGENCY ROOM. OKAY TO CONTINUE HOME MEDICATIONS UNLESS OTHERWISE DISCUSSED DURING YOUR VISIT IN THE EMERGENCY ROOM TODAY. RETURN TO YOUR NEAREST EMERGENCY ROOM IF SYMPTOMS WORSEN OR IF THERE IS NO IMPROVEMENT. CALL 911 IF YOU NEED IMMEDIATE ASSISTANCE. TAKE TYLENOL OR MOTRIN [id number] NEEDED AND IF NO CONTRAINDICATIONS ARE PRESENT. INCREASE ORAL HYDRATION. Referrals: MATT JARAMILLO MD (PCP) ATTESTATION BY PHYSICIAN I have seen and examined the patient. I reviewed the documentation, medical decision making, and treatment plan as noted by the resident provider above. I agree with the findings and plan of care. Ron Frances MD, NIHITHA MD Nov 15, 2024 08:58
[2024-11-15 09:03] LABS: INR <= 0.93 (0.85-1.15); PROTHROMBIN TIME 10.1 SEC (9.6-11.6)
--- NOTE | 2024-11-15 09:03 | EKG ---
[facility] Test Date: 2024-11-15 Test Time: 08:04:01 Pat Name: ARNALDO LIMON Department: ED Room: Gender: M Certified Nuclear Medicine Technologist: [id number] : 1955 Requested By: STEFANIE BONNER Order Number: [id number] Reading MD: Elver Echeverria Measurements Intervals [place] Rate: 71 P: 21 [place]: 174 QRS: -64 QRSD: 96 T: 27 QT: 397 QTc: 433 Interpretive Statements Sinus rhythm Left anterior fascicular block Compared to ECG 10/11/2024 12:17:23 Left anterior fascicular block now present Sinus tachycardia no longer present Myocardial infarct finding no longer present Electronically Signed On 11-16-2024 07:58:33 CORPORATE EXECUTIVE CHEF by Elver Echeverria Please click the below link to view image of tracing.
[2024-11-15 09:04] LABS: CREATININE 0.9 mg/dL (0.5-1.3); POTASSIUM 3.8 mmol/L (3.5-5.1)
[2024-11-15 09:05] LABS: PARTIAL THROMBOPLASTIN TIME 25.6 SEC (26.3-35.5)
[2024-11-15 09:16] LABS: B-TYPE NATRIURETIC PEPTIDE 28 pg/mL (0-100)
--- NOTE | 2024-11-15 09:41 | HMCIMG ---
CHEST 1VW REASON: CP COMPARISON: 10/12/2022 FINDINGS: Single view of the chest was obtained. Lungs are clear. Heart size is normal. There is no pulmonary vascular congestion. Mediastinum and bony thorax appear unremarkable. IMPRESSION: 1. Normal single view chest x-ray.
[2024-11-15 09:49] LABS: APPEARANCE,URINE CLEAR (CLEAR); BILIRUBIN,URINE NEGATIVE (NEGATIVE); COLOR,URINE LIGHT-YELLOW (YELLOW); GLUCOSE, URINE (UA) NEGATIVE (NEGATIVE); KETONES,URINE NEGATIVE (NEGATIVE); LEUKOCYTE ESTERASE ,URINE NEGATIVE Leu/uL (NEGATIVE); NITRATE,URINE NEGATIVE (NEGATIVE); OCCULT BLOOD,URINE NEGATIVE (NEGATIVE); PROTEIN,URINE NEGATIVE (NEGATIVE); UROBILINOGEN,URINE 0.2 mg/dL (0.2-1.0)
[2024-11-15 10:00] LABS: ADD UA MICROSCOPIC NO
[2024-11-15] MEDS: ketOROlac 15MG/ML VIAL (15MG/ML) IM ONE (10:21)
[2024-11-15 11:59] VITALS: BP 139/79; PULSE 71; RESP 16; TEMP 97.5; O2SAT 99
== END 2024-11-15 12:07 | disposition home or self-care (01) ==
LOC: EDH 08:01
DX: R00.2 Palpitations (principal); I10 Essential (primary) hypertension; E78.00 Pure hypercholesterolemia, unspecified; Z79.1 Long term (current) use of non-steroidal anti-inflammatories (NSAID); Z79.82 Long term (current) use of aspirin; Z79.899 Other long term (current) drug therapy; Z90.49 Acquired absence of other specified parts of digestive tract
CPT/HCPCS: 99285; 71045; 84484 ×2; 80048; 83880; 85025; 85610; 85730; 81003; 36415; 96372; 93005; J1885

== ENCOUNTER 2025-03-24 10:09 | Emergency (ER) | payer OTHER, MEDICAID ==
[~2025-03-24] VITALS: Ht 175.3 cm; Wt 90.7 kg
[~2025-03-24 10:09] MED LIST changes: -TAMS-1 PO; +TAMS-55 PO
--- NOTE | 2025-03-24 10:44 | NUR ---
AFTER CLAUDIA BAE, WHO PRIMARY NURSE IS PRECEPTING HAD A FAILED ATTEMPT AT AN IV PT VOICED AT HIM "YOU SON OF A BITCH". PRIMARY NURSE THEN SAID NO, HE IS NOT A SON OF A BITCH, HE IS A NURSE WHO IS TRYING TO HELP YOU. PT THEN VOICED, "WELL, THEN HOW ABOUT IF HE POKES YOU?" PRIMARY NURSE STATES IT'S NOT NICE TO CURSE AT THE NURSE WHO IS TRYING TO HELP YOU AND GETS INSULTED. STATES, " IF YOU WANNA SAY SOMETHING SAY IT TO ME" VERBALIZED TO , ARABELLA WE DON'T WANT ANY KIND OF VIOLENCE AND I WOULD LIKE TO CALL SECURITY TO ESCORT YOU OUT. , THEN STATES THAT PT YELLED OUT OF PAIN AND STATES WILL REPORT PRIMARY NURSE. PRIMARY NURSE ASKED THAT IN THE REPORT PLEASE INCLUDE THE INSULT HE CALLED FERNANDO THE NURSE. AFTER TALKING TO CHARGE NURSE, IT WAS AGREED TO PLACE PT IN CARE OF ANOTHER NURSE. THEN CAME AND SHOOK HANDS WITH PRIMARY NURSE AND APOLOGIZED FOR THE BEHAVIOR OF HER AND HER , PRIMARY NURSE ACCEPTED APOLOGY. PT TRANSFERRED TO ROOM 2.
[2025-03-24 11:04] LABS: APPEARANCE,URINE CLEAR (CLEAR); BILIRUBIN,URINE NEGATIVE (NEGATIVE); COLOR,URINE YELLOW (YELLOW); GLUCOSE, URINE (UA) NEGATIVE (NEGATIVE); KETONES,URINE NEGATIVE (NEGATIVE); LEUKOCYTE ESTERASE ,URINE NEGATIVE Leu/uL (NEGATIVE); NITRATE,URINE NEGATIVE (NEGATIVE); OCCULT BLOOD,URINE NEGATIVE (NEGATIVE); PROTEIN,URINE NEGATIVE (NEGATIVE); UROBILINOGEN,URINE 0.2 mg/dL (0.2-1.0)
[2025-03-24 11:08] LABS: ADD UA MICROSCOPIC NO
[2025-03-24 11:18] LABS: BASOPHILS # (AUTO) 0.03 K/uL (0.00-0.20); BASOPHILS % (AUTO) 0.4 % (0.0-5.0); EOSINOPHILS % (AUTO) 1.5 % (0.0-8.0); HEMATOCRIT 44.6 % (42-54); IMMATURE GRANULOCYTE ABSOLUTE 0.04 K/uL (0-1); LYMPHOCYTES # (AUTO) 1.1 K/uL (1.0-4.8); LYMPHOCYTES % (AUTO) 16.1 % (21.0-51.0); MEAN CORPUSCULAR HGB CONC 33.9 g/dL (32.0-36.0); MEAN CORPUSCULAR VOLUME 88.5 fL (79-99); MONOCYTES # (AUTO) 0.5 K/uL (0.1-1.0); MONOCYTES % (AUTO) 7.1 % (3.0-13.0); NEUTROPHILS # (AUTO) 5.1 K/uL (1.8-7.7); NEUTROPHILS % (AUTO) 74.3 % (40.0-77.0); PLATELET COUNT (AUTO) 154 K/uL (130-400); RED BLOOD CELL COUNT(AUTO) 5.04 MIL/uL (4.50-6.20); WHITE BLOOD COUNT (AUTO) 6.8 K/uL (4.8-10.8)
[2025-03-24 11:24] LABS: POTASSIUM 4.2 mmol/L (3.5-5.1)
[2025-03-24] MEDS: 0.9%NACL 1000ML 1,000 ML IV STA (11:26)
[2025-03-24] MEDS: ketOROlac 15MG/ML VIAL (15MG/ML) IV STA (11:26)
[2025-03-24 11:31] VITALS: BP 131/71; PULSE 83; RESP 16; TEMP 97.7; O2SAT 98
--- NOTE | 2025-03-24 11:51 | ERN ---
ED Note History of Present Illness Stated Complaint: BILATERAL FLANK PAIN, FREQUENCY Chief Complaint: Flank Pain Time Seen by MD: 10:20 Time Seen by Midlevel: 10:23 Dictation: 69-year-old male coming in with complaints of trouble emptying bladder, bila teral flank pain. Patient states he was seen by PCP when month ago but has not been able to see a specialist. Patient states he has a similar episode a few months ago where he has a be admitted and placed on meropenem for two weeks. Denies having any fever, nausea vomiting or diarrhea. Allergies: Coded Allergies: No Known Allergies (Verified Allergy, Unknown, 05/04/19) Home Meds Active Scripts Ciprofloxacin HCl (Cipro) 500 Mg Tablet, 1 TAB PO BID for 5 Days, #10 TAB 0 Refills Prov:KIRILL PHAN MANUFACTURING SOFTWARE ENGINEER 03/24/25 Reported Medications Tramadol HCl/Acetaminophen (Tramadol-Acetaminophn 37.5-325) 37.5 Mg-325 Mg Tablet, 1 TAB PO TIDP PRN for pain for 30 Days, #90 TAB 0 Refills 10/11/24 Baclofen (Baclofen) 5 Mg Tablet, 5 MG PO TID, TAB 10/11/24 Meloxicam (Meloxicam) 15 Mg Tablet, 1 TAB PO DAILY for 30 Days, #30 TAB 0 Refills 10/11/24 Pantoprazole Sodium (Pantoprazole Sodium) 40 Mg Tablet.dr, 1 TAB PO DAILY for 30 Days, #30 TAB 0 Refills 10/11/24 Aspirin (Aspirin EC) 81 Mg Tablet.dr, 1 TAB PO DAILY for 30 Days, #30 TAB 0 Refills 10/11/24 Atorvastatin Calcium (Atorvastatin Calcium) 10 Mg Tablet, 1 TAB PO DAILY for 30 Days, #30 TAB 0 Refills 10/11/24 Tamsulosin HCl (Flomax) 0.4 Mg Cap.er.24h, 1 CAP PO DAILY for 30 Days, #30 CAP 0 Refills 10/11/24 Cetirizine HCl (Zyrtec) 10 Mg Capsule, 10 MG PO DAILY, CAP 04/19/23 Lisinopril (Lisinopril) 10 Mg Tablet, 10 MG PO DAILY, TAB 04/19/23 Past Medical History Past Medical History: High Cholesterol, Hypertension Additional Past Medical Hx: PROSTATE ENLARGEMENT Surgical History: Cholecystectomy Surgical History Other: RIGHT KNEE Social History: Negative, Lives with family Review of System Dictation Constitutional: Negative for fever,chills, and weight loss Eyes: Negative for injury, pain,redness, and discharge ENT: Negative for injury,pain or swelling Cardiovascular: Negative for chest pain, palpitations, and edema Respiratory: Negative for shortness of breath, cough, and wheezing, Abdomen/GI: Negative for abdominal pain, nausea, vomiting, diarrhea, and constipation Back: Negative for injury and pain : Negative for injury, bleeding and discharge, complaining of difficulty urinating MS/Extremity: Negative for injury and deformity Skin: Negative for rash, and discoloration Neuro: Negative for headache, weakness, numbness, tingling, and seizure Psych: Negative for suicide ideation, homicidal ideation, and hallucinations Review of Systems: was completed Initial Vital Sign VS Vital Signs Date Time Temp Pulse Resp B/P (MAP) Pulse Ox O2 Delivery O2 Flow Rate FiO2 03/24/25 10:11 98.2 90 16 138/82 95 Room Air 0 03/24/25 11:31 21 Physical Exam Dictation General: awake, alert, NAD Head/Face: Normocephalic, atraumatic Eyes: PERRL, EOMI, vision at baseline ENT: oral cavity clear, TMs clear, no signs of infection Neck: Trachea midline, supple, no nuchal rigidity Cardiovascular: RRR, normal S1/S2, No MRGs, no JVD Respiratory: CTAB, no respiratory distress, No rales or wheezes Abdomen: Soft, non-tender, non-distended, normal bowel sounds, no guarding or rebound. Skin: Warm, dry, normal turgor, no rash MS/Extremity: Pulses equal, no cyanosis, neurovascular intact, FROM Neuro: COAx4, GCS 15, strength 5/5, CN 2-12 intact, normal cerebellar exam, normal gait, Psych: Normal behavior, mood, and affect normal Results (Laboratory/Radiology) Laboratory/Radiology Laboratory Tests Test 03/24/25 10:41 03/24/25 11:03 03/24/25 11:58 Urine Color YELLOW (YELLOW) Urine Appearance CLEAR (CLEAR) Urine pH 5.0 (5.0-8.0) Urine Specific Hancock 1.023 (1.001-1.031) Urine Protein NEGATIVE mg/dL (NEGATIVE) Urine Glucose (UA) NEGATIVE mg/dL (NEGATIVE) Urine Ketones NEGATIVE mg/dL (NEGATIVE) Urine Occult Blood NEGATIVE (NEGATIVE) Urine Nitrate NEGATIVE (NEGATIVE) Urine Bilirubin NEGATIVE mg/dL (NEGATIVE) Urine Urobilinogen 0.2 mg/dL (0.2-1.0) Urine Leukocyte Esterase NEGATIVE Kingsley/uL White Blood Count 6.8 K/uL (4.8-10.8) Red Blood Count 5.04 MIL/uL (4.50-6.20) Hemoglobin 15.1 g/dL (14.0-18.0) Hematocrit 44.6 % (42-54) Mean Corpuscular Volume 88.5 fL (79-99) Mean Corpuscular Hemoglobin 30.0 pg (27.0-33.0) Mean Corpuscular Hemoglobin Concent 33.9 g/dL (32.0-36.0) Red Cell Distribution Width 12.0 % (11.0-15.5) Platelet Count 154 K/uL (130-400) Mean Platelet Volume 11.6 fL (7.5-10.5) H Immature Granulocyte % (Auto) 0.6 % (0-1) Neutrophils (%) (Auto) 74.3 % (40.0-77.0) Lymphocytes (%) (Auto) 16.1 % (21.0-51.0) L Monocytes (%) (Auto) 7.1 % (3.0-13.0) Eosinophils (%) (Auto) 1.5 % (0.0-8.0) Basophils (%) (Auto) 0.4 % (0.0-5.0) Neutrophils # (Auto) 5.1 K/uL (1.8-7.7) Lymphocytes # (Auto) 1.1 K/uL (1.0-4.8) Monocytes # (Auto) 0.5 K/uL (0.1-1.0) Eosinophils # (Auto) 0.10 K/uL (0.00-0.70) Basophils # (Auto) 0.03 K/uL (0.00-0.20) Absolute Immature Granulocyte (auto 0.04 K/uL (0-1) Nucleated Red Blood Cells 0.0 % (0.0-0.19) Sodium Level 143 mmol/L (136-145) Potassium Level 4.2 mmol/L (3.5-5.1) Chloride Level 107 mmol/L (101-111) Carbon Dioxide Level 27 mmol/L (21-32) Blood Urea Nitrogen 15 mg/dL (7-18) Creatinine 1.0 mg/dL (0.5-1.3) Glomerular Filtration Rate Calc 82 mL/min (>90) Random Glucose 107 mg/dL (70-105) H Total Calcium 9.2 mg/dL (8.5-10.1) Lactic Acid Level 1.2 mmol/L (0.8-2.5) Labs Reviewed?: Yes CT Scan Comment: [facility] [address] [place] [address] IMAGING REPORT Signed PATIENT: ARNALDO LIMON MR#: [id number] : 1955 SEX: M AGE: 69 LOCATION: [facility] ORDER 1051 STATUS: REG ER REPORT#: [id number] SERVICE 1049 REASON: buster flank pain ORDERING PHYSICIAN: KIRILL PHAN NP PROCEDURE: ABD PEL WO - CT ABDOMEN/PELVIS W/O CONTRAST Exam Type: CT ABDOMEN/PELVIS W/O CONTRAST Clinical Information: buster flank pain Comparison: None CT Dose Index (CTDI): 10.20 mGy Dose Length Product (DLP): 530.00 total mGy-cm PROTOCOL: Routine noncontrast helical scanning of the abdomen and pelvis was performed at 5mm collimation. Findings: No evidence of nephro or ureterolithiasis is found. No hydronephrosis or ureteral dilatation is seen. The lung bases are clear. The stomach is unremarkable. It shows no wall thickening. No gross ulceration is seen. It is not overly distended. There are no surrounding inflammatory changes. No wall lesions are identified to suggest cancer. The spleen is unremarkable. It is not enlarged. The pancreas shows normal anatomy. It is not fatty replaced. It shows no lesions. The pancreatic duct is not dilated. The gallbladder is surgically absent. The adrenal glands are unremarkable. There is no enlargement. No lesions are noted. The liver is unremarkable. It shows no focal masses. The appendix is unremarkable. It shows no evidence of inflammation. No appendicolith is seen. Anterior abdominal wall hernia is seen containing small bowel loops without incarceration or strangulation. The prostate is enlarged. The colon is unremarkable. The urinary bladder is unremarkable. There is no wall thickening to suggest tumor or inflammation. There are no intraluminal calculi. There are no diverticula. There is no evidence of chronic bladder outlet obstruction. There is no evidence of urinary bladder distention to suggest urinary retention. The other pelvic structures are unremarkable. The bony and vascular structures are unremarkable for the patient's age. IMPRESSION: Anterior abdominal wall hernia is seen containing small bowel loops without incarceration or strangulation. The prostate is enlarged. This study was performed using dose reduction techniques to include automated exposure control and/or adjustment of the mA and/or kV according to patient size. DICTATED BY: DEE DEE CARRILLO MD DATE: 03/24/25 1206 ELECTRONICALLY SIGNED BY: DEE DEE CARRILLO MD DATE: 03/24/25 1215 ED Course ED Course Orders Procedure Category Date Status Time Cbc With Differential LAB 03/24/25 Complete 10:48 Basic Metabolic Panel LAB 03/24/25 Complete 10:48 Urinalysis Profile LAB 03/24/25 Complete 10:48 Blood Cult JENNIFER 03/24/25 In Process 10:48 Ct Abdomen/Pelvis W/O CT 03/24/25 Resulted Contrast 10:49 0.9%Nacl 1000ml (Ns PHA 03/24/25 Complete 1000ml) 10:49 Ketorolac PHA 03/24/25 Complete Tromethamine 15mg/Ml 10:49 Lactic Acid LAB 03/24/25 Complete 11:52 Current Medications Medications (Trade) Dose Ordered Sig/Octavia Route PRN Reason Start Time Stop Time Status Last Admin Dose Admin Ketorolac Tromethamine (toRADol) 15 mg ONCE STAT IV 03/24/25 10:49 03/24/25 10:53 DC 03/24/25 11:26 Sodium Chloride 1,000 ml @ 1,000 mls/hr Q1H STAT IV 03/24/25 10:49 03/24/25 11:48 DC 03/24/25 11:26 Vital Signs Date Time Temp Pulse Resp B/P (MAP) Pulse Ox O2 Delivery O2 Flow Rate FiO2 03/24/25 11:31 97.7 83 16 131/71 98 Room Air* 0 21 03/24/25 10:11 98.2 90 16 138/82 95 Room Air 0 Medical Decision Making MDM MDM: 69-year-old male coming in with complaints of trouble emptying bladder, bilateral flank pain. Patient states he was seen by PCP when month ago but has not been able to see a specialist. Patient states he has a similar episode a few months ago where he has a be admitted and placed on meropenem for two weeks. Denies having any fever, nausea vomiting or diarrhea.CBC shows no leukocytosis, no anemia, no thrombocytopenia. Chemistry unremarkable. Lactic is normal. Urine shows no evidence of urinary tract infection. CT scan of the abdomen shows anterior abdominal wall containing small bowel loops without incarceration, and an enlarged prostate. Due to patient's discomfort we will prescribe antibiotics treat this is prostatitis. Patient states he is already taking Flomax. Educated patient she needs to follow up with a urologist, states she has tried to get in to see Dr. Kearney but they keep cancelling him. Educated patient that we will give him another name for a urologist so he can call make an appointment. Educated patient on signs and symptoms of when to return back to the ER Differential diagnosis: Urinary tract infection, pyelonephritis, enlarged prostate, kidney stones Rationale: Tests considered and ordered secondary to shared decision making include: Previous outside records reviewed: Old ER visits. Risk of complication and/or morbidity or mortality of patient management: None Medications-Per medication reconciliation Need for hospitalization: Patient does not meet criteria for hospitalization. Need for emergency major/minor surgery: No There are no social concerns with this patient. Prescription drug management Prescriptions will include symptomatic care Patient's prior external medical records from other ER visits were reviewed by me as indicated. Prior testing and results from previous visits were reviewed. Prior tests were taken into account with medical decision making and resource utilization, independent historian/historians were used to obtain complete medic al history. I independently interpreted the test that were performed, results were reviewed by me and considered findings on radiology if ordered. Medical management and examination interpretation discussions were had by me with other qualified healthcare professionals as indicated for the patient's care. DX & DISP Disposition: Discharge Departure Impression: Primary Impression: Prostatitis Condition: Stable Scripts Ciprofloxacin HCl (Cipro) 500 Mg Tablet 1 TAB PO BID for 5 Days, #10 TAB 0 Refills Prov: KIRILL PHAN MANUFACTURING SOFTWARE ENGINEER 03/24/25 Additional Instructions: Please follow up with urologist. Return to the hospital if you start to develop any fever, nausea vomiting or unable to urinate. Referrals: MATT JARAMILLO MD (PCP) NIRALI WILLINGHAM MD Time of Disposition: 12:52 I have reviewed the case, and I agree with, Diagnosis and Plan I performed the substantive portion of the visit. I have reviewed and personally made and approve the management plan that is documented in the notes by myself or the MARY. I acknowledge full responsibility for the patient's management plan. KIRILL PHAN NP March 24, 2025 11:51 TOI NUNN MD March 24, 2025 18:20
--- NOTE | 2025-03-24 12:15 | HMCIMG ---
Exam Type: CT ABDOMEN/PELVIS W/O CONTRAST Clinical Information: buster flank pain Comparison: None CT Dose Index (CTDI): 10.20 mGy Dose Length Product (DLP): 530.00 total mGy-cm PROTOCOL: Routine noncontrast helical scanning of the abdomen and pelvis was performed at 5mm collimation. Findings: No evidence of nephro or ureterolithiasis is found. No hydronephrosis or ureteral dilatation is seen. The lung bases are clear. The stomach is unremarkable. It shows no wall thickening. No gross ulceration is seen. It is not overly distended. There are no surrounding inflammatory changes. No wall lesions are identified to suggest cancer. The spleen is unremarkable. It is not enlarged. The pancreas shows normal anatomy. It is not fatty replaced. It shows no lesions. The pancreatic duct is not dilated. The gallbladder is surgically absent. The adrenal glands are unremarkable. There is no enlargement. No lesions are noted. The liver is unremarkable. It shows no focal masses. The appendix is unremarkable. It shows no evidence of inflammation. No appendicolith is seen. Anterior abdominal wall hernia is seen containing small bowel loops without incarceration or strangulation. The prostate is enlarged. The colon is unremarkable. The urinary bladder is unremarkable. There is no wall thickening to suggest tumor or inflammation. There are no intraluminal calculi. There are no diverticula. There is no evidence of chronic bladder outlet obstruction. There is no evidence of urinary bladder distention to suggest urinary retention. The other pelvic structures are unremarkable. The bony and vascular structures are unremarkable for the patient's age. IMPRESSION: Anterior abdominal wall hernia is seen containing small bowel loops without incarceration or strangulation. The prostate is enlarged. This study was performed using dose reduction techniques to include automated exposure control and/or adjustment of the mA and/or kV according to patient size.
[2025-03-24] MEDS ORDERED: CIPR-278 PO (12:51)
== END 2025-03-24 13:03 | disposition home or self-care (01) ==
LOC: EDH 10:09
DX: N41.9 Inflammatory disease of prostate, unspecified (principal); E78.00 Pure hypercholesterolemia, unspecified; I10 Essential (primary) hypertension; Z79.1 Long term (current) use of non-steroidal anti-inflammatories (NSAID); Z79.82 Long term (current) use of aspirin; Z79.899 Other long term (current) drug therapy; Z90.49 Acquired absence of other specified parts of digestive tract
CPT/HCPCS: 99285; 74176; 96374; 80048; 85025; 87040 ×2; 83605; 81003; 36415; J1885; J7030